=== PATIENT | male | born 1970 | race Caucasian/White ===

== ENCOUNTER 2017-05-05 17:50 | Inpatient (IN) | payer MEDICAID ==
[~2017-05-05] VITALS: Ht 188 cm; Wt 112.0 kg
[2017-05-05 17:51] VITALS: BP 156/98; PULSE 88; RESP 15; TEMP 98.1; O2SAT 98
[2017-05-05] MEDS ORDERED: LISI-515 PO (19:27)
--- NOTE | 2017-05-05 20:50 | PD ---
HPI Chief Complaint: GI Complaint Time Seen by Provider: 20:50 Travel History International Travel<30 days: No Contact w/Intl Traveler<30days: No Traveled to known affect area: No History of Present Illness HPI 46 YO M with PMH of hypertension, diverticulitis, open appendectomy and ventral hernia, partial SBO presents to the ED for evaluation of 5 day history of abdominal pain, bilious vomiting and diarrhea. The patient is from [place]. He was diagnosed with a small bowel obstruction but left AMA to attend [facility] in [facility]. He flew here and states that his symptoms worsened since the flight. He endorses 10/10 abdominal pain, copious bilious vomiting, abdominal bloating and diarrhea on presentation. Denies fever, chills, chest pain, shortness of breath. He states he's had 2 previous episodes of SBO since his ventral hernia repair. [facility] Past Medical History Diminished Hearing: No Hypertension: Yes Past Surgical History Abdominal Surgery: Yes (hernia from appendectomy) Appendectomy: Yes Social History Alcohol Use: No Tobacco Use: No (never) Substance Use: No Allergies-Medications (Allergen,Severity, Reaction): Coded Allergies: No Known Allergies (Unverified , 05/05/17) Reported Meds & Prescriptions Reported Meds & Active Scripts Active Reported Lisinopril 20 Mg Tab 20 Mg PO DAILY Review of Systems Except as stated in HPI: all other systems reviewed are Neg Physical Exam Narrative GENERAL: Well-nourished, well-developed white male in no acute distress. SKIN: Focused skin assessment warm/dry. HEAD: Normocephalic. EYES: No scleral icterus. No injection or drainage. NECK: Supple, trachea midline. No JVD or lymphadenopathy. CARDIOVASCULAR: Regular rate and rhythm without murmurs, gallops, or rubs. RESPIRATORY: Breath sounds equal bilaterally. No accessory muscle use. GASTROINTESTINAL: Abdomen firm, bloated, diffusely tender. Hypoactive bowel sounds. Complex scar in the midline without signs of infection. MUSCULOSKELETAL: No cyanosis, or edema. BACK: Nontender without obvious deformity. No CVA tenderness. Data Data Last Documented VS Vital Signs Date Time Temp Pulse Resp B/P Pulse Ox O2 Delivery O2 Flow Rate FiO2 05/05/17 21:56 18 97 Room Air 05/05/17 17:51 98.1 88 156/98 Orders Complete Blood Count With Diff (05/05/17 20:56) Comprehensive Metabolic Panel (05/05/17 20:56) Lipase (05/05/17 20:56) Lactic Acid (05/05/17 20:56) Prothrombin Time / Inr (Pt) (05/05/17 20:56) Act Partial Throm Time (Ptt) (05/05/17 20:56) Urinalysis - C+S If Indicated (05/05/17 20:56) Ct Abd/Pel W Iv Contrast(Rout) (05/05/17 20:56) Iv Access Insert/Monitor (05/05/17 20:56) Ecg Monitoring (05/05/17 20:56) Oximetry (05/05/17 20:56) Ondansetron Inj (Zofran Inj) (05/05/17 21:00) Sodium Chlor 0.9% 1000 Ml Inj (Ns 1000 M (05/05/17 20:56) Sodium Chloride 0.9% Flush (Ns Flush) (05/05/17 21:00) Hydromorphone Pf Inj (Dilaudid Pf Inj) (05/05/17 21:00) Sodium Chlor 0.9% 1000 Ml Inj (Ns 1000 M (05/05/17 22:45) Potassium Chloride Powder (Kcl Powder) (05/05/17 22:45) Iohexol 350 Inj (Omnipaque 350 Inj) (05/05/17 22:44) Labs Laboratory Tests Test 05/05/17 05/05/17 21:15 21:32 White Blood Count 8.7 TH/MM3 Red Blood Count 5.90 MIL/MM3 Hemoglobin 16.7 GM/DL Hematocrit 48.6 % Mean Corpuscular Volume 82.3 FL Mean Corpuscular Hemoglobin 28.4 PG Mean Corpuscular Hemoglobin 34.4 % Concent Red Cell Distribution Width 13.4 % Platelet Count 299 TH/MM3 Mean Platelet Volume 7.8 FL Neutrophils (%) (Auto) 71.8 % Lymphocytes (%) (Auto) 19.1 % Monocytes (%) (Auto) 8.6 % Eosinophils (%) (Auto) 0.2 % Basophils (%) (Auto) 0.3 % Neutrophils # (Auto) 6.2 TH/MM3 Lymphocytes # (Auto) 1.7 TH/MM3 Monocytes # (Auto) 0.7 TH/MM3 Eosinophils # (Auto) 0.0 TH/MM3 Basophils # (Auto) 0.0 TH/MM3 CBC Comment DIFF FINAL Differential Comment Prothrombin Time 12.0 SEC Prothromb Time International 1.1 RATIO Ratio Activated Partial 26.6 SEC Thromboplast Time Sodium Level 140 MEQ/L Potassium Level 3.1 MEQ/L Chloride Level 102 MEQ/L Carbon Dioxide Level 27.9 MEQ/L Anion Gap 10 MEQ/L Blood Urea Nitrogen 20 MG/DL Creatinine 1.14 MG/DL Estimat Glomerular Filtration 69 ML/MIN Rate Random Glucose 103 MG/DL Calcium Level 9.3 MG/DL Total Bilirubin 1.5 MG/DL Aspartate Amino Transf 40 U/L (AST/SGOT) Alanine Aminotransferase 80 U/L (ALT/SGPT) Alkaline Phosphatase 79 U/L Total Protein 7.8 GM/DL Albumin 3.7 GM/DL Lipase 83 U/L Lactic Acid Level 1.0 mmol/L [facility] Medical Decision Making Medical Screen Exam Complete: Yes Emergency Medical Condition: Yes Differential Diagnosis SBO versus perforated viscus versus bowel ischemia versus intra-abdominal adhesions versus diverticulosis versus other Narrative Course 46-year-old male with PMH of HTN, diverticulitis, open appendectomy and ventral hernia presents to the ED for evaluation of 5 day history of abdominal pain, bilious vomiting. Patient's from [place], was seen in the emergency room, diagnosed with a small bowel instruction but left AMA to attend prescheduled schooling here in [facility]. Came by plane and states that his symptoms have worsened since the flight. On presentation he endorses 10/10 abdominal pain, copious bilious vomiting, abdominal bloating. Denies fevers, chest pain, shortness of breath. Vitals reviewed. On physical exam the patient is nontoxic appearing. His belly is firm, bloated, diffusely tender. There is a complex subumbilical scar without signs of infection. Bowel sounds hypoactive. IV was established. The patient was administered 1 mg Dilaudid, 4 mg Zofran and 1 L normal saline IV. CBC: WBC 8.7. Hemoglobin 16.7 INR: 1.1 CMP: BUN 20, creatinine 1.14. Potassium 3.1. Bilirubin 1.5. AST 40, ALT 80. Lactic acid: 1.0 Patient was administered a second liter of normal saline, 40 mEq [address] by mouth. CT pending at end of shift. Disposition per Dr. Anthony. Maria D Story May 05, 2017 20:50 Maria D Story May 05, 2017 20:50
[2017-05-05] MEDS ORDERED: SODIUM CHLOR 0.9% 1000 ML INJ 1,000 ML IV SCH (20:56)
[2017-05-05] MEDS ORDERED: HYDROmorphone HCL PF 1 MG/ML VIAL IVS ONE (21:00)
[2017-05-05] MEDS ORDERED: SODIUM CHLORIDE 0.9% FLUSH 10 ML FLUSH IV FLUSH PRN (21:00)
[2017-05-05] MEDS ORDERED: ONDANSETRON HCL 4 MG/2 ML VIAL IVP ONE (21:00)
[2017-05-05 21:56] VITALS: RESP 18; O2SAT 97
[2017-05-05 22:00] VITALS: BP 151/87; PULSE 79; RESP 16; O2SAT 97
[2017-05-05 22:01] LABS: AUTOMATED NEUTROPHIL # 6.2 TH/MM3 (1.8-7.7); BASOPHIL % 0.3 % (0.0-2.0); EOSINOPHIL % 0.2 % (0.0-4.0); HEMATOCRIT 48.6 % (39.0-51.0); HEMO FLAGS DIFF FINAL; LYMPH % 19.1 % (9.0-44.0); LYMPHOCYTE # 1.7 TH/MM3 (1.0-4.8); MEAN CELL VOLUME 82.3 FL (80.0-100.0); MEAN CORPUSCULAR HEMOGLOBIN 28.4 PG (27.0-34.0); MEAN CORPUSCULAR HGB CONC 34.4 % (32.0-36.0); MONO % 8.6 % (0.0-8.0); NEUT % 71.8 % (16.0-70.0); PLATELET COUNT 299 TH/MM3 (150-450); RED CELL DISTRIBUTION WIDTH 13.4 % (11.6-17.2); WHITE BLOOD COUNT 8.7 TH/MM3 (4.0-11.0)
[2017-05-05 22:09] LABS: APTT (PATIENT) 26.6 SEC (24.3-30.1); INTERNATIONAL NORMALIZED RATIO 1.1 RATIO
[2017-05-05 22:17] LABS: ALT (GPT) 80 U/L (12-78); ANION GAP 10 MEQ/L (5-15); AST (GOT) 40 U/L (15-37); BICARBONATE 27.9 MEQ/L (21.0-32.0); BLOOD UREA NITROGEN 20 MG/DL (7-18); CHLORIDE 102 MEQ/L (98-107); GLOMERULAR FILTRATION RATE 69 ML/MIN (>89); POTASSIUM 3.1 MEQ/L (3.5-5.1); SODIUM (NA) 140 MEQ/L (136-145)
[2017-05-05 22:20] LABS: ALKALINE PHOSPHATASE 79 U/L (45-117); TOTAL BILIRUBIN ADULT 1.5 MG/DL (0.2-1.0)
[2017-05-05] MEDS ORDERED: IOHEXOL 350 MG/ML 10 ML VIAL (for RAD DIAG) IV ONE (22:44)
[2017-05-05] MEDS ORDERED: SODIUM CHLOR 0.9% 1000 ML INJ 1,000 ML IV ONE ×2 (22:45→23:30)
[2017-05-05] MEDS ORDERED: POTASSIUM CHLORIDE 20 MEQ PWD PACKET PO ONE (22:45)
--- NOTE | 2017-05-05 23:23 | RADRPT ---
EXAM DATE/TIME: 05/05/2017 22:35 [facility] COMPARISON: No previous studies available for comparison. INDICATIONS : Abdomen pain. IV CONTRAST: 100 cc Omnipaque 350 (iohexol) IV ORAL CONTRAST: No oral contrast ingested. RADIATION DOSE: 10.43 CTDIvol (mGy) MEDICAL HISTORY : Hypertension. SURGICAL HISTORY : Appendectomy. hernia repair. ENCOUNTER: Initial ACUITY: 1 day PAIN SCALE: 5/10 LOCATION: Bilateral abdomen TECHNIQUE: Volumetric scanning of the abdomen and pelvis was performed. Using automated exposure control and ad justment of the mA and/or kV according to patient size, radiation dose was kept as low as reasonably achievable to obtain optimal diagnostic quality images. DICOM format image data is available electro nically for review and comparison. FINDINGS: LOWER LUNGS: Subsegmental consolidation in the posterior and anterior right lower lung with air bronchograms. A f ew patchy infiltrates at the left lung base. LIVER: Homogeneous density without lesion. There is no dilation of the biliary tree. No calcified gallston es. SPLEEN: Normal size without lesion. PANCREAS: Within normal limits. KIDNEYS: Normal in size and shape. There is no mass, stone or hydronephrosis. ADRENAL GLANDS: Within normal limits. VASCULAR: There is no aortic aneurysm. BOWEL/MESENTERY: Abnormal. There are multiple dilated loops of small bowel in the mid and left abdomen measuring up t o 5 cm in width and containing multiple air fluid levels. There is a transition in luminal diameter located in the right mid or lower abdomen. ABDOMINAL WALL: Metallic screws in the lower abdomen and hernia mesh. RETROPERITONEUM: There is no lymphadenopathy. BLADDER: No wall thickening or mass. REPRODUCTIVE: Within normal limits. INGUINAL: Small left-sided fat-containing inguinal hernia. MUSCULOSKELETAL: Within normal limits for patient age. CONCLUSION: 1. Small bowel obstruction with change in luminal diameter in the right lower abdomen. 2. Small left inguinal hernia containing fat. 3. Bilateral lower lobe infiltrates, right greater than left. Micah Salas MD on May 05, 2017 at 23:15 Board Certified Radiologist. This report was verified electronically.
[2017-05-06] VITALS (8 sets, daily range): BP systolic 134–177; BP diastolic 67–109; PULSE 70–82; RESP 16–19; TEMP 96.2–98; O2SAT 93–99
[2017-05-06] MEDS ORDERED: LIDOCAINE 2% JELLY 30 ML TUBE TOPICAL ONE
--- NOTE | 2017-05-06 00:03 | PD ---
Data Data Last Documented VS Vital Signs Date Time Temp Pulse Resp B/P Pulse Ox O2 Delivery O2 Flow Rate FiO2 05/05/17 22:00 79 16 151/87 97 Room Air 05/05/17 17:51 98.1 Orders Complete Blood Count With Diff (05/05/17 20:56) Comprehensive Metabolic Panel (05/05/17 20:56) Lipase (05/05/17 20:56) Lactic Acid (05/05/17 20:56) Prothrombin Time / Inr (Pt) (05/05/17 20:56) Act Partial Throm Time (Ptt) (05/05/17 20:56) Ct Abd/Pel W Iv Contrast(Rout) (05/05/17 20:56) Iv Access Insert/Monitor (05/05/17 20:56) Ecg Monitoring (05/05/17 20:56) Oximetry (05/05/17 20:56) Ondansetron Inj (Zofran Inj) (05/05/17 21:00) Sodium Chlor 0.9% 1000 Ml Inj (Ns 1000 M (05/05/17 20:56) Sodium Chloride 0.9% Flush (Ns Flush) (05/05/17 21:00) Hydromorphone Pf Inj (Dilaudid Pf Inj) (05/05/17 21:00) Sodium Chlor 0.9% 1000 Ml Inj (Ns 1000 M (05/05/17 22:45) Potassium Chloride Powder (Kcl Powder) (05/05/17 22:45) Iohexol 350 Inj (Omnipaque 350 Inj) (05/05/17 22:44) Ng Gastric Tube Insert/Monitor (05/05/17 23:28) Sodium Chlor 0.9% 1000 Ml Inj (Ns 1000 M (05/05/17 23:30) Lidocaine 2% Jelly (Xylocaine 2% Jelly) (05/06/17 00:00) Admit To Inpatient (05/06/17 ) Vital Signs (Adult) Q4H (05/06/17 00:18) Activity Oob With Assistance (05/06/17 00:18) Housekeeper Home / Telemetry .CONTINUOUS (05/06/17 00:18) Diet Npo (05/06/17 Breakfast) Sodium Chlor 0.9% 1000 Ml Inj (Ns 1000 M (05/06/17 00:18) Sodium Chloride 0.9% Flush (Ns Flush) (05/06/17 00:30) Sodium Chloride 0.9% Flush (Ns Flush) (05/06/17 09:00) Basic Metabolic Panel (Bmp) (05/07/17 06:00) Complete Blood Count With Diff (05/07/17 06:00) Case Management Consult (05/06/17 00:18) Naloxone Inj (Narcan Inj) (05/06/17 00:30) Inpatient Certification (05/06/17 ) Admit Order (Ed Use Only) (05/06/17 00:19) Consult Gastroenterology (05/06/17 ) Labs Laboratory Tests Test 05/05/17 05/05/17 21:15 21:32 Prothrombin Time 12.0 SEC Prothromb Time International 1.1 RATIO Ratio Activated Partial 26.6 SEC Thromboplast Time Sodium Level 140 MEQ/L Potassium Level 3.1 MEQ/L Chloride Level 102 MEQ/L Carbon Dioxide Level 27.9 MEQ/L Anion Gap 10 MEQ/L Blood Urea Nitrogen 20 MG/DL Creatinine 1.14 MG/DL Estimat Glomerular Filtration 69 ML/MIN Rate Random Glucose 103 MG/DL Calcium Level 9.3 MG/DL Total Bilirubin 1.5 MG/DL Aspartate Amino Transf 40 U/L (AST/SGOT) Alanine Aminotransferase 80 U/L (ALT/SGPT) Alkaline Phosphatase 79 U/L Total Protein 7.8 GM/DL Albumin 3.7 GM/DL Lipase 83 U/L White Blood Count 8.7 TH/MM3 Red Blood Count 5.90 MIL/MM3 Hemoglobin 16.7 GM/DL Hematocrit 48.6 % Mean Corpuscular Volume 82.3 FL Mean Corpuscular Hemoglobin 28.4 PG Mean Corpuscular Hemoglobin 34.4 % Concent Red Cell Distribution Width 13.4 % Platelet Count 299 TH/MM3 Mean Platelet Volume 7.8 FL Neutrophils (%) (Auto) 71.8 % Lymphocytes (%) (Auto) 19.1 % Monocytes (%) (Auto) 8.6 % Eosinophils (%) (Auto) 0.2 % Basophils (%) (Auto) 0.3 % Neutrophils # (Auto) 6.2 TH/MM3 Lymphocytes # (Auto) 1.7 TH/MM3 Monocytes # (Auto) 0.7 TH/MM3 Eosinophils # (Auto) 0.0 TH/MM3 Basophils # (Auto) 0.0 TH/MM3 CBC Comment DIFF FINAL Differential Comment Lactic Acid Level 1.0 mmol/L MDM Medical Record Reviewed: Yes Supervised Visit with LUZ MARINA: Yes Narrative Course I, Dr. Anthony, have reviewed the advance practice practitioner's documentation and am in agreement unless otherwise documented below, met with the patient face to face, made the diagnosis, and the medical decision making was done by me. *My assessment and Findings: CBC & BMP Diagram 05/05/17 21:15 AST 40 ALT 80 LA 1.0 INR 1.1 Last 24 hours Impressions Abdomen/Pelvis CT 05/05/172055 Signed Impressions: Service Date/Time: Friday, May 05, 2017 22:35 - CONCLUSION: 1. Small bowel obstruction with change in luminal diameter in the right lower abdomen. 2. Small left inguinal hernia containing fat. 3. Bilateral lower lobe infiltrates , right greater than left. Micah Salas MD d/w Dr David d/w Dr Bella pt assessed at 2245: abdomen soft, pt reports pain relief after 1mg hydromorphone NGT placed; pt tolerated well Diagnosis Primary Impression: SBO (small bowel obstruction) Additional Impression: Hypokalemia Admitting Information Admitting Physician Requests: Admit Tommie Anthony MD May 06, 2017 00:03
[2017-05-06] MEDS: SODIUM CHLOR 0.9% 1000 ML INJ 1,000 ML IV SCH ×2 (00:18→10:18)
[2017-05-06] MEDS ORDERED: SODIUM CHLORIDE 0.9% FLUSH 10 ML FLUSH IV FLUSH PRN (00:30)
[2017-05-06] MEDS ORDERED: NALOXONE HCL 0.4 MG/ML AMP IV PRN (00:30)
[2017-05-06] MEDS ORDERED: HYDROmorphone HCL PF 1 MG/ML VIAL IV PUSH PRN (02:00)
[2017-05-06] MEDS ORDERED: ONDANSETRON HCL 4 MG/2 ML VIAL IV PUSH PRN (02:00)
[2017-05-06] MEDS ORDERED: LORazepam 2 MG/ML VIAL IV PUSH PRN (02:00)
[2017-05-06] MEDS: ENALAPRILAT 2.5 MG/2 ML VIAL IV PUSH PRN (04:28)
[2017-05-06] MEDS: SODIUM CHLORIDE 0.9% FLUSH 10 ML FLUSH IV FLUSH SCH ×2 (08:47→20:24)
--- NOTE | 2017-05-06 09:59 | PD.CONS ---
HPI History of Present Illness This is a 46 year old male who presented to the ER for evaluation of abdominal pain with associated nausea, vomiting, and diarrhea. He is from [place] and recently was hospitalized and diagnosed with a small bowel obstruction, but left AMA to attend school here in [facility]. He reports that his symptoms have worsened since his flight to [facility]. He reports that he had an appendectomy 20 years ago and then a hernia repair about 15 years ago. He has had multiple small bowel obstructions, about 6-7 episodes over the past 8 years- usually once a year. He has never required surgery for his bowel obstructions, but was told the last time that he would need surgery if he had another episode. He started having nausea, vomiting, diarrhea, with abdominal pain and distention, consistent with his other episodes of bowel obstructions. His nausea/vomiting consisted of green bilious material. He was also passing liquid/loose green stool and having associated diffuse abdominal pain/cramping which was aggravated by po intake. He was seen in the ER in [place] on Wednesday and told that he had a bowel obstruction, but left AMA on Wednesday to attend school here in [facility] (class today). 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 He has been in touch with his surgeon back home - Dr. Guthrie ( ) and the plan is for him to undergo surgery in 2 weeks when he returns home. The patient states he is feeling much better. He reports a large semi-formed bowel movement this morning and that he is no longer having abdominal distention and that his pain has improved. He feels better and would like his NGT removed. (Estella Dave) PFSH Past Medical History Recurrent small bowel obstruction Hernia HTN Past Surgical History Hernia repair Appendectomy (Estella Dave) Coded Allergies: No Known Allergies (Unverified , 05/05/17) Medications Allergies Coded Allergies Type Severity Reaction Last Updated Verified No Known Allergies 05/05/17 No Active Scripts Medications Dose Route/Sig Days Date Category Lisinopril 20 Mg Tab 20 Mg PO DAILY 05/05/17 Reported Family History Denies family hx of esophageal, gastric, or colorectal cancer. Mother had breast cancer Social History No tobacco, etoh, or illicit drug use. (TenzinEstella) Review of Systems Constitutional: COMPLAINS OF: Fatigue, Change in appetite, DENIES: Fever, Weight loss, Chills Cardiovascular: DENIES: Chest pain Gastrointestinal: COMPLAINS OF: Abdominal pain, Diarrhea, Nausea, Vomiting, Swelling of Abdomen, DENIES: Black stools, Bloody stools, Constipation, Heartburn Musculoskeletal: DENIES: Joint pain Integumentary: DENIES: Abnormal pigmentation Hematologic/lymphatic: DENIES: Bruising Neurologic: DENIES: Headache Psychiatric: DENIES: Confusion (DaveEstella) GI Exam Vitals I&O Vital Signs Date Time Temp Pulse Resp B/P Pulse Ox O2 Delivery O2 Flow Rate FiO2 05/06/17 08:00 97.2 71 19 136/67 93 05/06/17 05:25 97.5 75 18 163/102 94 05/06/17 02:00 177/103 05/06/17 01:50 97.4 79 18 169/109 96 05/06/17 01:01 82 16 154/90 99 Room Air 05/05/17 22:00 79 16 151/87 97 Room Air 05/05/17 21:56 18 97 Room Air 05/05/17 17:51 98.1 88 15 156/98 98 I/O 05/05/17 05/05/17 05/05/17 05/06/17 05/06/17 05/06/17 07:00 15:00 23:00 07:00 15:00 23:00 Intake Total 440 ml Output Total 675 ml Balance -235 ml Intake Oral 0 ml IV Total 440 ml Output Urine Total 375 ml Gastric Drainage Total 300 ml # Bowel Movements 0 Imaging Last Impressions Abdomen/Pelvis CT 05/05/172055 Signed Impressions: Service Date/Time: Friday, May 05, 2017 22:35 - CONCLUSION: 1. Small bowel obstruction with change in luminal diameter in the right lower abdomen. 2. Small left inguinal hernia containing fat. 3. Bilateral lower lobe infiltrates , right greater than left. Micah Salas MD Laboratory Test 05/05/17 05/05/17 21:15 21:32 Prothrombin Time 12.0 SEC Prothromb Time International 1.1 RATIO Ratio Activated Partial 26.6 SEC Thromboplast Time Sodium Level 140 MEQ/L Potassium Level 3.1 MEQ/L Chloride Level 102 MEQ/L Carbon Dioxide Level 27.9 MEQ/L Anion Gap 10 MEQ/L Blood Urea Nitrogen 20 MG/DL Creatinine 1.14 MG/DL Estimat Glomerular Filtration 69 ML/MIN Rate Random Glucose 103 MG/DL Calcium Level 9.3 MG/DL Total Bilirubin 1.5 MG/DL Aspartate Amino Transf 40 U/L (AST/SGOT) Alanine Aminotransferase 80 U/L (ALT/SGPT) Alkaline Phosphatase 79 U/L Total Protein 7.8 GM/DL Albumin 3.7 GM/DL Lipase 83 U/L White Blood Count 8.7 TH/MM3 Red Blood Count 5.90 MIL/MM3 Hemoglobin 16.7 GM/DL Hematocrit 48.6 % Mean Corpuscular Volume 82.3 FL Mean Corpuscular Hemoglobin 28.4 PG Mean Corpuscular Hemoglobin 34.4 % Concent Red Cell Distribution Width 13.4 % Platelet Count 299 TH/MM3 Mean Platelet Volume 7.8 FL Neutrophils (%) (Auto) 71.8 % Lymphocytes (%) (Auto) 19.1 % Monocytes (%) (Auto) 8.6 % Eosinophils (%) (Auto) 0.2 % Basophils (%) (Auto) 0.3 % Neutrophils # (Auto) 6.2 TH/MM3 Lymphocytes # (Auto) 1.7 TH/MM3 Monocytes # (Auto) 0.7 TH/MM3 Eosinophils # (Auto) 0.0 TH/MM3 Basophils # (Auto) 0.0 TH/MM3 CBC Comment DIFF FINAL Differential Comment Lactic Acid Level 1.0 mmol/L Physical Examination HEENT:Normocephalic; atraumatic; no jaundice. CHEST: CTA CARDIAC: RRR ABDOMEN: Soft, NONdistended, minimal abdominal tenderness; no hepatosplenomegaly; bowel sounds are active. NGT with bilious material. EXTREMITIES: No clubbing, cyanosis, or edema. SKIN: Normal; no rash; no jaundice. ROUSTABOUT: No focal deficits; alert and oriented times three. (Estella Dave) Assessment and Plan Plan ASSESSMENT: - SBO, improving. Pt with hx of appendectomy, hernia repair. He has had multiple episodes of SBO (usually once a year) for the past 7-8 years. These resolve on their own and he has not required surgery, although he was told by his GS that he would require surgery if it happened again. He was seen in the ER in [place] on Wednesday and told that he had a bowel obstruction, but left AMA on Wednesday to attend school here in [facility] ( class today). He returned for worsening symptoms. Abdomen/Pelvis CT (05/05/17)-- --> 1. Small bowel obstruction with change in luminal diameter in the right lower abdomen. 2. Small left inguinal hernia containing fat. 3. Bilateral lower lobe infiltrates, right greater than left. He has been in touch with his surgeon back home- Dr. Guthrie ([facility] ) and the plan is for him to undergo surgery in 2 weeks when he returns home. The patient states he is feeling much better. He reports a large semi-formed bowel movement this morning and that he is no longer having abdominal distention and that his pain has improved. He feels better and would like his NGT removed. 300cc of gastric drainage documented last night, no new drainage in container. Abdomen pretty benign- soft, nondistended, minimal tenderness. Will clamp NGT and start clears. - N/V/D, Abdominal pain secondary to above- symptoms much improved. - Elevated LFTs. No hx of liver disease. Denies ETOH. T. Bili 1.5, AST 40, ALT 80, Alk PHosph 79. CT as above. Will get liver workup. - HTN, per attending. PLAN: - Clear liquids - Clamp NGT - If no n/v/pain/distention 4 hours after starting clear liquids, okay to d/c NGT - Stool studies - Hepatitis panel - AFP - AMA, CAREY, ASMA - Ceruloplasmin, Alpha 1 Antitrypsin - Ferritin, Iron saturation - CBC, CMP, PT/INR in am - Supportive care - Further recommendations to follow based on results of above - Dr. Guthrie ( ). Pt planning on going home to have surgery with his GS in 2 weeks. Does not want to have surgery here if possible - Pt seen and examined by Dr. Connors and myself and this note is written on her behalf (Estella Dave) Physician Comments seen, examined agree with above we will keep ngt until dinner if nausea, vomiting can dc if worsening we will need to consult surgery we will monitor lfts , if worse hida scan or mrcp (Renetta Connors MD) Estella Dave May 06, 2017 09:59 Renetta Connors MD May 06, 2017 13:30
[2017-05-06] MEDS ORDERED: BENZOCAINE 6 MG/MENTHOL 10 MG LOZENGE BUCCAL PRN (11:15)
--- NOTE | 2017-05-06 13:18 | HHI.HP ---
[facility] Unknown Admission Diagnosis Bowel Obstruction Diagnoses: Travel History International Travel<30 Days: No Contact w/Intl Traveler <30 Da: No Traveled to Known Affected Are: No History of Present Illness Mr. Reyes is a 46-year-old male. He is admitted secondary to bowel traction. This has happened to him before. His only other medical condition his hypertension. When seen today he reports that he's had 2 bowel movements. This is a good sign. He no longer feels distended her nauseated, when seen today. No distress when seen. No complaints of fever. He has 2 prior abdominal surgeries including appendectomy and hernia surgeries which predispose him for scar tissue which may lead to small bowel obstructions. Review of Systems Constitutional: DENIES: Fever, Chills, Change in appetite Endocrine: DENIES: Heat/cold intolerance Eyes: DENIES: Blurred vision, Eye pain Ears, nose, mouth, throat: DENIES: Hearing loss, Vertigo, Throat pain Respiratory: DENIES: Apneas, Cough, Snoring Cardiovascular: DENIES: Chest pain, Palpitations, Syncope Gastrointestinal: COMPLAINS OF: Abdominal pain, Nausea, Vomiting, DENIES: Black stools, Bloody stools Musculoskeletal: DENIES: Joint pain, Muscle aches, Stiffness Integumentary: DENIES: Abnormal pigmentation Hematologic/lymphatic: DENIES: Bruising Immunologic/allergic: DENIES: Eczema Neurologic: DENIES: Abnormal gait, Localized weakness, Tremor, Poor Balance Psychiatric: DENIES: Anxiety, Confusion, Mood changes Past Family Social History Past Medical History Recurrent small bowel obstruction Hernia HTN Past Surgical History Hernia repair Appendectomy Reported Medications Reported Meds & Active Scripts Active Reported Lisinopril 20 Mg Tab 20 Mg PO DAILY Allergies: Coded Allergies: No Known Allergies (Unverified , 05/05/17) Family History Denies family hx of esophageal, gastric, or colorectal cancer. Mother had breast cancer Social History No tobacco, etoh, or illicit drug use. Physical Exam Vital Signs Vital Signs Date Time Temp Pulse Resp B/P Pulse Ox O2 Delivery O2 Flow Rate FiO2 05/06/17 08:00 97.2 71 19 136/67 93 8/3/17 05:25 97.5 75 18 163/102 94 05/06/17 02:00 177/103 05/06/17 01:50 97.4 79 18 169/109 96 05/06/17 01:01 82 16 154/90 99 Room Air 05/05/17 22:00 79 16 151/87 97 Room Air 05/05/17 21:56 18 97 Room Air 05/05/17 17:51 98.1 88 15 156/98 98 Physical Exam GENERAL: NAD, A&Ox3 HEAD: Normocephalic. NG tube in place. NECK: Supple, trachea midline. No lymphadenopathy. EYES: No scleral icterus. No injection or drainage. CARDIOVASCULAR: Regular rate and rhythm without murmurs, gallops, or rubs. RESPIRATORY: Breath sounds equal bilaterally. No accessory muscle use. GASTROINTESTINAL: Abdomen soft, non-tender, nondistended. MUSCULOSKELETAL: No cyanosis, or edema. SKIN: Warm and dry. NEURO: No focal neurological deficitis. Laboratory Laboratory Tests Test 05/05/17 05/05/17 21:15 21:32 Prothrombin Time 12.0 Prothromb Time International 1.1 Ratio Activated Partial 26.6 Thromboplast Time Sodium Level 140 Potassium Level 3.1 Chloride Level 102 Carbon Dioxide Level 27.9 Anion Gap 10 Blood Urea Nitrogen 20 Creatinine 1.14 Estimat Glomerular Filtration 69 Rate Random Glucose 103 Calcium Level 9.3 Total Bilirubin 1.5 Aspartate Amino Transf 40 (AST/SGOT) Alanine Aminotransferase 80 (ALT/SGPT) Alkaline Phosphatase 79 Total Protein 7.8 Albumin 3.7 Lipase 83 White Blood Count 8.7 Red Blood Count 5.90 Hemoglobin 16.7 Hematocrit 48.6 Mean Corpuscular Volume 82.3 Mean Corpuscular Hemoglobin 28.4 Mean Corpuscular Hemoglobin 34.4 Concent Red Cell Distribution Width 13.4 Platelet Count 299 Mean Platelet Volume 7.8 Neutrophils (%) (Auto) 71.8 Lymphocytes (%) (Auto) 19.1 Monocytes (%) (Auto) 8.6 Eosinophils (%) (Auto) 0.2 Basophils (%) (Auto) 0.3 Neutrophils # (Auto) 6.2 Lymphocytes # (Auto) 1.7 Monocytes # (Auto) 0.7 Eosinophils # (Auto) 0.0 Basophils # (Auto) 0.0 CBC Comment DIFF FINAL Differential Comment Lactic Acid Level 1.0 Result Diagram: 05/05/17211405/05/172114 Assessment and Plan Problem List: (1) SBO (small bowel obstruction) ICD Code: K56.69 Status: Acute (2) Hypokalemia ICD Code: E87.6 Status: Acute (3) Hypertension ICD Code: I10 Status: Acute Assessment and Plan Assessment and plan 46-year-old male with history of small bowel obstruction presents to the ER with recurrence of a small bowel obstruction. Small bowel obstruction Continue nothing by mouth Some signs of improvement today NG tube clamped X-ray of abdomen If obstructive pattern is improving we'll consider removal of NG tube and start diet Hypertension Continue lisinopril once patients often by mouth Monitor blood pressures DVT prophylaxis Lovenox Physician Certification 2 Midnight Certification Type: Admission for Inpatient Services Order for Inpatient Services The services are ordered in accordance with Medicare regulations or non- Medicare payer requirements, as applicable. In the case of services not specified as inpatient-only, they are appropriately provided as inpatient services in accordance with the 2-midnight benchmark. Estimated LOS (days): 2 days is the estimated time the patient will need to remain in the hospital, assuming treatment plan goals are met and no additional complications. Post-Hospital Plan: Home Tommie Hanley MD May 06, 2017 13:18
--- NOTE | 2017-05-06 15:31 | RADRPT ---
EXAM DATE/TIME: 05/06/2017 12:20 [facility] COMPARISON: CT ABDOMEN & PELVIS W CONTRAST, May 05, 2017, 22:35. INDICATIONS : Evaluate small bowel obstruction MEDICAL HISTORY : Hypertension. SURGICAL HISTORY : Appendectomy. hernia repair. ENCOUNTER: Initial ACUITY: 2 days PAIN SCORE: 0/10 LOCATION: Abdomen FINDINGS: 2 portable supine views of the abdomen show persistent gaseous dilatation of the proximal small bowel . Appearance is similar to yesterday. There's been placement of a nasogastric tube with decompression of the stomach. The colon is decompressed. Prior ventral hernia repair utilizing mesh. CONCLUSION: Persistent dilatation of the small bowel consistent with small bowel obstruction. Micah Robles Jr., MD on May 06, 2017 at 15:24 Board Certified Radiologist. This report was verified electronically.
[2017-05-06] MEDS: ENOXAPARIN SODIUM 40 MG/0.4 ML SYRINGE SQ SCH (15:53)
[2017-05-06 16:48] LABS: TRANSFERRIN IRON PROFILE 153 MG/DL (200-360)
[2017-05-06 16:51] LABS: FERRITIN 450 NG/ML (26-388)
[2017-05-06] MEDS ORDERED: LORazepam 2 MG/ML VIAL IV PUSH ONE (22:15)
[2017-05-07] VITALS: BP 171/92; PULSE 75; RESP 16; TEMP 99; O2SAT 96
[2017-05-07] MEDS: ENALAPRILAT 2.5 MG/2 ML VIAL IV PUSH PRN (00:18)
[2017-05-07 04:00] VITALS: BP 130/62; PULSE 68; RESP 16; TEMP 97.5; O2SAT 98
[2017-05-07] MEDS: SODIUM CHLOR 0.9% 1000 ML INJ 1,000 ML IV SCH ×2 (06:18→16:18)
[2017-05-07 08:00] VITALS: BP 120/70; PULSE 65; RESP 20; TEMP 96.2; O2SAT 96
[2017-05-07] MEDS: SODIUM CHLORIDE 0.9% FLUSH 10 ML FLUSH IV FLUSH SCH (09:00)
--- NOTE | 2017-05-07 10:22 | RADRPT ---
EXAM DATE/TIME: 05/07/2017 10:00 [facility] COMPARISON: No previous studies available for comparison. INDICATIONS : Nausea. MEDICAL HISTORY : Hypertension. SURGICAL HISTORY : Appendectomy. hernia repair. ENCOUNTER: Subsequent ACUITY: 3 days PAIN SCORE: 0/10 LOCATION: abdomen FINDINGS: Lung base is are clear. Scattered air-fluid levels are seen in large and small bowel in nonspecific fashion. There is no free air. Previously repair is noted. Degenerative changes are present in the lumbar spine. CONCLUSION: 1. Nonspecific scattered air-fluid levels. There is no significant dilatation. Jose Bailey MD FACR on May 07, 2017 at 10:20 Board Certified Radiologist. This report was verified electronically.
[2017-05-07 11:29] LABS: ANA SCREEN NEG (NEG)
--- NOTE | 2017-05-07 11:39 | HHI.GIFU ---
Subjective Remarks Resting in bed. Patient reports that he did have 1 episode of vomiting last night. Afterwards he went to the restroom and passed a large amount of liquid stool mixed with solid stool. He reports that he also passed a large amount of flatus. He states that he has had several bowel movements since and he feels "fine." He is not having any abdominal pain. He denies any history of liver disease or alcohol abuse. (Estella Dave) Objective Vitals I&O Vital Signs Date Time Temp Pulse Resp B/P Pulse Ox O2 Delivery O2 Flow Rate FiO2 05/07/17 08:00 96.2 65 20 120/70 96 05/07/17 04:00 97.5 68 16 130/62 98 05/07/17 00:00 99.0 75 16 171/92 96 05/06/17 19:00 98.0 76 16 168/97 94 05/06/17 16:00 97.4 70 19 136/80 95 05/06/17 12:00 96.2 73 18 134/77 94 I/O 05/06/17 05/06/17 05/06/17 05/07/17 05/07/17 05/07/17 07:00 15:00 23:00 07:00 15:00 23:00 Intake Total 440 ml 400 ml 480 ml 480 ml Output Total 675 ml 100 ml Balance -235 ml 400 ml 380 ml 480 ml Intake Oral 0 ml 400 ml 480 ml 480 ml IV Total 440 ml Output Urine Total 375 ml Gastric Drainage Total 300 ml 100 ml # Voids 3 2 2 # Bowel Movements 0 0 0 Laboratory Laboratory Tests Test 05/06/17 15:10 Iron Level 41 Total Iron Binding Capacity 214 Percent Iron Saturation 19.1 Ferritin 450 Tumor Marker Alpha Fetoprotein 2.4 Anti-Nuclear Antibody Screen NEG Imaging Last Impressions Abdomen X-Ray 05/07/17 0000 Signed Impressions: Service Date/Time: Sunday, May 07, 2017 10:00 - CONCLUSION: 1. Nonspecific scattered air-fluid levels. There is no significant dilatation. Jose Bailey MD FACR Abdomen/Pelvis CT 05/05/172055 Signed Impressions: Service Date/Time: Friday, May 05, 2017 22:35 - CONCLUSION: 1. Small bowel obstruction with change in luminal diameter in the right lower abdomen. 2. Small left inguinal hernia containing fat. 3. Bilateral lower lobe infiltrates , right greater than left. Micah Salas MD Physical Exam HEENT: Normocephalic; atraumatic; no jaundice CHEST: CTA CARDIAC: RRR. ABDOMEN: Soft, nondistended, nontender; no hepatosplenomegaly; bowel sounds are present in all four quadrants. EXTREMITIES: No clubbing, cyanosis, or edema. SKIN: Normal; no rash; no jaundice. MANAGER MECHANICAL MAINTENANCE: No focal deficits; alert and oriented times three. (Estella Dave [facility]) Assessment and Plan Plan ASSESSMENT: - SBO, improving. Pt with hx of appendectomy, hernia repair. He has had multiple episodes of SBO (usually once a year) for the past 7-8 years. These resolve on their own and he has not required surgery, although he was told by his GS that he would require surgery if it happened again. He was seen in the ER in [place] on Wednesday and told that he had a bowel obstruction, but left AMA on Wednesday to attend school here in [facility] ( class today). He returned for worsening symptoms. Abdomen/Pelvis CT (05/05/17)-- --> 1. Small bowel obstruction with change in luminal diameter in the right lower abdomen. 2. Small left inguinal hernia containing fat. 3. Bilateral lower lobe infiltrates, right greater than left. He has been in touch with his surgeon back home- Dr. Guthrie (Cell ) and the plan is for him to undergo surgery in 2 weeks when he returns home. He was doing better yesterday and his NGT was clamped, he was started on a liquid diet, and his NGT was removed. His diet was then advanced. Last night, he did have one episode of vomiting, but states that he went to the restroom and passed a large amount of stool- liquid mixed with solid. He is passing flatus and denies any nausea or pain. Rpt. Abdomen X-Ray (05/07/17)----> 1. Nonspecific scattered air-fluid levels. There is no significant dilatation. GS consulted. - N/V/D, Abdominal pain secondary to above- symptoms much improved. - Elevated LFTs. No hx of liver disease. Denies ETOH. T. Bili 1.5, AST 40, ALT 80, Alk PHosph 79. CT as above. Hepatitis panel pending, CAREY-negative, AMA pending, ASMA pending, AFP 2.4, Ceruloplasmin pending, ALpha 1 Antitrypsin pending, ferritin 450, Iron saturation 19.1%. Today's CMP is still pending. - HTN, per attending. PLAN: - Full liquids - Await today's CMP - Await Stool studies - Await AMA, CAREY, ASMA - Await Ceruloplasmin, Alpha 1 Antitrypsin - GS evaluation pending - Supportive care - Further recommendations to follow based on results of above - Dr. Guthrie ( ). Pt planning on going home to have surgery with his GS in 2 weeks. Does not want to have surgery here if possible - Pt seen and examined by Dr. Connors and myself and this note is written on her behalf (Estella Dave) Physician Comments seen, examined agree with above low fiber diet fu surgery if worse ed (Renetta Connors MD) Estella Dave May 07, 2017 11:39 Renetta Connors MD May 07, 2017 19:20
[2017-05-07 11:44] LABS: AUTOMATED NEUTROPHIL # 5.9 TH/MM3 (1.8-7.7); BASOPHIL % 0.2 % (0.0-2.0); EOSINOPHIL # 0.1 TH/MM3 (0-0.4); EOSINOPHIL % 1.3 % (0.0-4.0); HEMATOCRIT 45.9 % (39.0-51.0); HEMO FLAGS DIFF FINAL; LYMPH % 21.5 % (9.0-44.0); LYMPHOCYTE # 1.8 TH/MM3 (1.0-4.8); MEAN CELL VOLUME 82.7 FL (80.0-100.0); MEAN CORPUSCULAR HEMOGLOBIN 28.5 PG (27.0-34.0); MEAN CORPUSCULAR HGB CONC 34.5 % (32.0-36.0); MONO % 7.2 % (0.0-8.0); NEUT % 69.8 % (16.0-70.0); PLATELET COUNT 342 TH/MM3 (150-450); RED BLOOD COUNT 5.55 MIL/MM3 (4.50-5.90); RED CELL DISTRIBUTION WIDTH 13.1 % (11.6-17.2); WHITE BLOOD COUNT 8.5 TH/MM3 (4.0-11.0)
[2017-05-07 11:52] LABS: PROTHROMBIN TIME - PATIENT 11.3 SEC (9.8-11.6)
[2017-05-07 12:00] VITALS: BP 147/80; PULSE 71; RESP 20; TEMP 96.6; O2SAT 100
[2017-05-07 12:06] LABS: ANION GAP 6 MEQ/L (5-15); AST (GOT) 29 U/L (15-37); BICARBONATE 28.7 MEQ/L (21.0-32.0); BLOOD UREA NITROGEN 18 MG/DL (7-18); CHLORIDE 107 MEQ/L (98-107); GLOMERULAR FILTRATION RATE 70 ML/MIN (>89); POTASSIUM 3.2 MEQ/L (3.5-5.1); SODIUM (NA) 142 MEQ/L (136-145)
[2017-05-07 12:07] LABS: ALT (GPT) 76 U/L (12-78)
[2017-05-07 12:09] LABS: ALKALINE PHOSPHATASE 75 U/L (45-117)
[2017-05-07] MEDS: ENOXAPARIN SODIUM 40 MG/0.4 ML SYRINGE SQ SCH (13:53)
[2017-05-07 15:02] LABS: C. DIFF EPI 027 PRESUMPTIVE NEGATIVE (NEGATIVE); C. DIFF TOXIN PCR NEGATIVE (NEGATIVE)
--- NOTE | 2017-05-07 15:25 | PD.CONS ---
cc: Hermelindo Reyes MD [facility] Service General Surgery Consult Requested By Dr. Connors Reason for Consult Evaluation of small bowel obstruction Primary Care Physician Unknown History of Present Illness This is a 46-year-old male with a past medical history of hypertension. He does report that he has had several small bowel obstructions and all were treated nonoperatively over the last few years. He is from [place], [place] and is down in the [place] area for school. He was recently hospitalized in [place] for small bowel obstruction but left AGAINST MEDICAL ADVICE to attend school in [facility]. He is scheduled to have a diagnostic laparoscopy with a surgeon in [place] in 2 weeks. On admission it was reported that he had a distended abdomen with pain that he describes as sharp and a 6/10. He did report nausea. During the hospitalization, he had several bowel movements and was advanced to a regular diet. He ate his first meal very quickly and then developed severe sudden onset of abdominal pain with nausea. He does report that he ate this meal very quickly and feels like that was most likely the problem rather than the obstruction reoccurring. He was made nothing by mouth and an NG tube was ordered to low intermittent wall suction. He did refuse to have the NG tube placed. Later that evening, he did have a bowel movement has passed gas. He does feel hungry this morning and wants to eat. A General Surgery consultation has been requested for evaluation of a small bowel obstruction. Review of Systems Constitutional: COMPLAINS OF: Change in appetite, DENIES: Fatigue Endocrine: DENIES: Polydipsia, Polyuria, Polyphagia Eyes: DENIES: Diplopia Ears, nose, mouth, throat: DENIES: Hearing loss Respiratory: DENIES: Apneas Cardiovascular: DENIES: Chest pain Gastrointestinal: COMPLAINS OF: Abdominal pain, Nausea, Vomiting Genitourinary: DENIES: Urgency Musculoskeletal: DENIES: Joint pain Integumentary: DENIES: Abnormal pigmentation Immunologic/allergic: DENIES: Eczema Neurologic: DENIES: Abnormal gait, Headache, Localized weakness Psychiatric: DENIES: Mood changes, Depression, Hallucinations Past Family Social History Past Medical History Hypertension Small bowel obstruction Past Surgical History Open appendectomy approximately 20 years ago in [place], [place] Repair of incisional hernia approximated 15 years ago in [place] Reported Medications Lisinopril Allergies: Coded Allergies: No Known Allergies (Unverified , 05/05/17) Active Ordered Medications Current Medications Medications (Trade) Dose Ordered Sig/Abhay Route Start Time Stop Time Status Last Admin (NS 1000 ml Inj) 1,000 ml @ 100 mls/hr Q10H IV 05/06/17 00:18 (NS Flush) 2 ml UNSCH PRN IV FLUSH 05/06/17 00:30 (NS Flush) 2 ml BID IV FLUSH 05/06/17 09:00 05/06/17 20:24 (Narcan Inj) 0.4 mg UNSCH PRN IV 05/06/17 00:30 (Zofran Inj) 4 mg Q6HR PRN IV PUSH 05/06/17 02:00 05/06/17 20:23 (Dilaudid Pf Inj) 0.5 mg Q4H PRN IV PUSH 05/06/17 02:00 (Vasotec Inj) 2.5 mg Q6H PRN IV PUSH 05/06/17 02:30 05/07/17 00:18 (Chloraseptic Jose Miguel) 1 lozenge UNSCH PRN BUCCAL 05/06/17 11:15 (Lovenox Inj) 40 mg Q24H SQ 05/06/17 14:00 05/07/17 13:53 Family History Noncontributory Social History Denies tobacco use Denies EtOH use Denies illicit drug use Lives in [facility] and is in the [facility] for school Physical Exam Vital Signs Vital Signs Date Time Temp Pulse Resp B/P Pulse Ox O2 Delivery O2 Flow Rate FiO2 05/07/17 12:00 96.6 71 20 147/80 100 05/07/17 08:00 96.2 65 20 120/70 96 05/07/17 04:00 97.5 68 16 130/62 98 05/07/17 00:00 99.0 75 16 171/92 96 05/06/17 19:00 98.0 76 16 168/97 94 05/06/17 16:00 97.4 70 19 136/80 95 Physical Exam GENERAL: Very pleasant 46 year old male ambulating in room. SKIN: Warm and dry. HEAD: Atraumatic. Normocephalic. EYES: Pupils equal and round. No scleral icterus. No injection or drainage. ENT: No nasal bleeding or discharge. Mucous membranes pink and moist. NECK: Trachea midline. CARDIOVASCULAR: Regular rate and rhythm. RESPIRATORY: No accessory muscle use. Clear to auscultation. Breath sounds equal bilaterally. GASTROINTESTINAL: Abdomen soft, non-tender, nondistended. Well healed midline abdominal scar. MUSCULOSKELETAL: Extremities without clubbing, cyanosis, or edema. No obvious deformities. NEUROLOGICAL: Awake and alert. No obvious cranial nerve deficits. Motor grossly within normal limits. Five out of 5 muscle strength in the arms and legs. Normal speech. PSYCHIATRIC: Appropriate mood and affect; insight and judgment normal. Laboratory Laboratory Tests Test 05/07/17 05/07/17 09:46 13:10 White Blood Count 8.5 Red Blood Count 5.55 Hemoglobin 15.8 Hematocrit 45.9 Mean Corpuscular Volume 82.7 Mean Corpuscular Hemoglobin 28.5 Mean Corpuscular Hemoglobin 34.5 Concent Red Cell Distribution Width 13.1 Platelet Count 342 Mean Platelet Volume 8.0 Neutrophils (%) (Auto) 69.8 Lymphocytes (%) (Auto) 21.5 Monocytes (%) (Auto) 7.2 Eosinophils (%) (Auto) 1.3 Basophils (%) (Auto) 0.2 Neutrophils # (Auto) 5.9 Lymphocytes # (Auto) 1.8 Monocytes # (Auto) 0.6 Eosinophils # (Auto) 0.1 Basophils # (Auto) 0.0 CBC Comment DIFF FINAL Differential Comment Prothrombin Time 11.3 Prothromb Time International 1.0 Ratio Sodium Level 142 Potassium Level 3.2 Chloride Level 107 Carbon Dioxide Level 28.7 Anion Gap 6 Blood Urea Nitrogen 18 Creatinine 1.12 Estimat Glomerular Filtration 70 Rate Random Glucose 92 Calcium Level 8.6 Total Bilirubin 1.0 Aspartate Amino Transf 29 (AST/SGOT) Alanine Aminotransferase 76 (ALT/SGPT) Alkaline Phosphatase 75 Total Protein 7.6 Albumin 3.5 Stool C. difficile Toxin (PCR) NEGATIVE Stl C. difficile Toxin PRESUMPTIVE Epiderm 027 NEGATIVE Date/Time Procedure Status Source Growth 05/07/17 13:10 Cryptosporidium Exam Received Stool Stool Pending 05/07/17 13:10 Stool Pus (ELIZABETH) Received Stool Stool Pending 05/07/17 13:10 Giardia Antigen (ELIZABETH) Received Stool Stool Pending 05/07/17 13:10 Received Stool Stool Pending Result Diagram: 05/07/17 0946 05/07/17 0946 Imaging Last 48 hours Impressions Abdomen X-Ray 05/07/17 0000 Signed Impressions: Service Date/Time: Sunday, May 07, 2017 10:00 - CONCLUSION: 1. Nonspecific scattered air-fluid levels. There is no significant dilatation. Jose Bailey MD FACR Abdomen X-Ray 05/06/17 0000 Signed Impressions: Service Date/Time: May 12:20 - CONCLUSION: Persistent dilatation of the small bowel consistent with small bowel obstruction. Miach Robles Jr., MD Abdomen/Pelvis CT 05/05/172055 Signed Impressions: Service Date/Time: Friday, May 05, 2017 22:35 - CONCLUSION: 1. Small bowel obstruction with change in luminal diameter in the right lower abdomen. 2. Small left inguinal hernia containing fat. 3. Bilateral lower lobe infiltrates , right greater than left. Miach Salas MD Assessment and Plan Assessment and Plan 46 year old male with recurrent small bowel obstructions -Based on today's KUB advance diet as tolerated. -Encouraged small more frequent meals -+BM -Patient should follow up with surgeon in [place] -If tolerates diet, would DC home with instructions to see Surgeon in [place], [place]. -Thank you for this consult Discussed Condition With Aleena Stewart May 07, 2017 15:25
[2017-05-07 16:00] VITALS: BP 162/99; PULSE 68; RESP 20; TEMP 97; O2SAT 100
--- NOTE | 2017-05-07 20:24 | HHI.DS ---
Discharge Summary Admission Date May 06, 2017 at 00:20 Discharge Date: May 07, 2017 Admitting Diagnosis Bowel Obstruction (1) SBO (small bowel obstruction) ICD Code: K56.69 Diagnosis: Principal (2) Hypokalemia ICD Code: E87.6 Diagnosis: Principal (3) Hypertension ICD Code: I10 Diagnosis: Principal Procedures None Brief History - From Admission Mr. Reyes is a 46-year-old male. He is admitted secondary to bowel traction. This has happened to him before. His only other medical condition his hypertension. When seen today he reports that he's had 2 bowel movements. This is a good sign. He no longer feels distended her nauseated, when seen today. No distress when seen. No complaints of fever. He has 2 prior abdominal surgeries including appendectomy and hernia surgeries which predispose him for scar tissue which may lead to small bowel obstructions. CBC/BMP: 05/07/17 0946 05/07/17 0946 Significant Findings Laboratory Tests Test 05/05/17 05/06/17 05/07/17 21:15 15:10 09:46 Prothrombin Time 12.0 SEC (9.8-11.6) Potassium Level 3.1 MEQ/L 3.2 MEQ/L (3.5-5.1) (3.5-5.1) Blood Urea Nitrogen 20 MG/DL (7-18) Estimat Glomerular Filtration 69 ML/MIN (>89) 70 ML/MIN (>89) Rate Total Bilirubin 1.5 MG/DL (0.2-1.0) Aspartate Amino Transf 40 U/L (15-37) (AST/SGOT) Alanine Aminotransferase 80 U/L (12-78) (ALT/SGPT) Neutrophils (%) (Auto) 71.8 % (16.0-70.0) Monocytes (%) (Auto) 8.6 % (0.0-8.0) Iron Level 41 MCG/DL (65-175) Total Iron Binding Capacity 214 MCG/DL (250-450) Percent Iron Saturation 19.1 % (20-50) Ferritin 450 NG/ML (26-388) Hospital Course Mr. Reyes is a 46-year-old male. He was admitted secondary to small bowel obstruction. She initially improved and a trial of NG tube removal and solid diet at night caused relapse of his bowel obstruction symptoms. Second time around he refused replacement of his NG tube. After doing a handstand in the bathroom she had resolution of his obstructive symptoms and subsequently had 3 bowel movements in a high amount of flatulence. He has felt at baseline ever since. Today his diet was slowly advanced to full liquids and then to regular diet by dinnertime. This evening he still symptom-free and requesting discharge. Patient is medically stable for discharge this evening. Pt Condition on Discharge: Stable Discharge Disposition: Discharge Home Discharge Time: <= 30 minutes Discharge Instructions DIET: Follow Instructions for: As Tolerated, No Restrictions Activities you can perform: Regular-No Restrictions Follow up Referrals: PCP Follow-up - 1 Week Continued Medications: Lisinopril (Lisinopril) 20 Mg Tab 20 MG PO DAILY #30 Ref 0 TAB Tommie Hanley MD May 07, 2017 20:24
== END 2017-05-07 20:34 | disposition home or self-care (01) | DRG 390 ==
LOC: NEPE 17:50 → NEDA 05-06 00:20 → N06B 05-06 01:42
PROVIDERS: ADMIT Hospitalist; ATTEND Hospitalist
DX: K56.60 Unspecified intestinal obstruction (principal); I10 Essential (primary) hypertension; E87.6 Hypokalemia
CPT/HCPCS: 74000; 74020; 74177; 80053; 80074; 82103; 82105; 82390; 82728; 83520; 83540; 83550; 83605; 83690; 85025; 85610; 85730; 86038; 86255; 87205; 87328; 87329; 87493; 87506; 96361; 96374; 96375; J1170; J1650; J2060; J2405; J7030; Q9967